=== PATIENT | female | born 2000 | race Caucasian/White ===

== ENCOUNTER 2021-10-23 14:40 | Emergency (ER) | payer MEDICAID, OTHER ==
[~2021-10-23] VITALS: Ht 157.4 cm; Wt 61.2 kg
[2021-10-23 14:57] LABS: BILIRUBIN,URINE NEGATIVE (NEGATIVE); COLOR,URINE YELLOW; GLUCOSE, URINE (UA) TRACE (NEGATIVE); KETONES,URINE NEGATIVE (NEGATIVE); LEUKOCYTE ESTERASE ,URINE 1+ (NEGATIVE); NITRITE,URINE NEGATIVE (NEGATIVE); PROTEIN,URINE NEGATIVE (NEGATIVE)
[2021-10-23 14:58] LABS: CLARITY,URINE SLIGHTLY CLOUDY
[2021-10-23 15:01] LABS: BACTERIA,URINE MODERATE /HPF; WBC,URINE >100 /HPF
--- NOTE | 2021-10-23 15:06 | ED GU-Female ---
General Chief Complaint: - Reproductive Stated Complaint: HEMATURIA Nursing Triage Note: Patient presents to the ED at 14 weeks gestation with c/o hematuria. Reports started having abdominal cramping yesterday and noted blood in her urine. Source: patient Exam Limitations: no limitations History of Present Illness Date Seen by Provider: Oct 23, 2021 Time Seen by Provider: 14:43 Initial Comments 21yoF that is roughly 14 WGA that is following with Dr. Jimenez coming in due to hematuria. Started this morning with associated dysuria and bilateral flank pain.Has a history of kidney stones years ago seen on ultrasound. Allergies and Home Medications Allergies Coded Allergies: No Known Drug Allergies (Unverified , 10/23/21) Patient Home Medication List Home Medication List Reviewed: Yes Cefdinir (Cefdinir) 300 Mg Capsule, 300 MG PO BID Prescribed by: DEMETRI COOPER on 10/23/21 0558 Review of Systems Review of Systems Constitutional: No fever EENTM: No blurred vision Respiratory: No cough Cardiovascular: No chest pain Gastrointestinal: No abdominal pain Genitourinary: burning Musculoskeletal: no symptoms reported Skin: no symptoms reported Psychiatric/Neurological: No Symptoms Reported Endocrine: No Symptoms Reported Hematologic/Lymphatic: No Symptoms Reported All Other Systemes Reviewed Negative Unless Noted: Yes Past Htcyaag-Vuzrtt-Hhszuf Hx Patient Social History Tobacco Use?: No Substance use?: No Alcohol Use?: No Immunizations Up To Date First/Initial COVID19 Vaccinat: No Past Medical History Surgery/Hospitalization HX: Kidney Stone Surgeries: No Physical Exam Vital Signs Vital Signs - First Documented 10/23/21 14:52 Temp 35.9 Pulse 91 Resp 14 B/P (MAP) 118/68 (85) Pulse Ox 99 O2 Delivery Room Air Capillary Refill : Less Than 3 Seconds Height, Weight, BMI Height: '" Weight: lbs. oz. kg; 24.00 BMI Method: General Appearance: WD/WN, no apparent distress HEENT: PERRL/EOMI, normal ENT inspection, pharynx normal Neck: non-tender, full range of motion, supple, normal inspection Cardiovascular: regular rate, rhythm, no edema, no murmur Respiratory: chest non-tender, lungs clear, normal breath sounds, no respiratory distress, no accessory muscle use Gastrointestinal: normal bowel sounds, non tender, soft; No distended, No guarding, No rebound Back: normal inspection, no CVA tenderness Extremities: normal range of motion, non-tender, normal inspection, no pedal edema, no calf tenderness, normal capillary refill Neurologic/Psychiatric: no motor/sensory deficits, alert, normal mood/affect Skin: normal color, warm/dry Lymphatic: no adenopathy Progress/Results/Core Measures Suspected Sepsis SIRS Temperature: Pulse: 91 Respiratory Rate: 14 Laboratory Tests 10/23/21 15:27: White Blood Count 9.7 Blood Pressure 118 /68 Mean: 85 Laboratory Tests 10/23/21 15:27: Creatinine 0.56L, Platelet Count 199, Total Bilirubin < 0.2 Results/Orders Lab Results Laboratory Tests Test 10/23/21 14:45 10/23/21 15:27 Range/Units Urine Color YELLOW Urine Clarity SLIGHTLY CLOUDY Urine pH 6.0 5-9 Urine Specific [place] <=1.005 1.016-1.022 Urine Protein NEGATIVE NEGATIVE Urine Glucose (UA) TRACE H NEGATIVE Urine Ketones NEGATIVE NEGATIVE Urine Nitrite NEGATIVE NEGATIVE Urine Bilirubin NEGATIVE NEGATIVE Urine Urobilinogen 0.2 < = 1.0 MG/DL Urine Leukocyte Esterase 1+ H NEGATIVE Urine RBC (Auto) 2+ H NEGATIVE Urine RBC 5-10 H /HPF Urine WBC >100 H /HPF Urine Squamous Epithelial Cells 2-5 /HPF Urine Crystals NONE /LPF Urine Bacteria MODERATE H /HPF Urine Casts NONE /LPF Urine Mucus NEGATIVE /LPF Urine Culture Indicated YES White Blood Count 9.7 4.3-11.0 10^3/uL Red Blood Count 4.21 3.80-5.11 10^6/uL Hemoglobin 13.0 11.5-16.0 g/dL Hematocrit 36 35-52 % Mean Corpuscular Volume 86 80-99 fL Mean Corpuscular Hemoglobin 31 25-34 pg Mean Corpuscular Hemoglobin Concent 36 32-36 g/dL Red Cell Distribution Width 13.8 10.0-14.5 % Platelet Count 199 130-400 10^3/uL Mean Platelet Volume 10.4 9.0-12.2 fL Immature Granulocyte % (Auto) 0 % Neutrophils (%) (Auto) 73 42-75 % Lymphocytes (%) (Auto) 20 12-44 % Monocytes (%) (Auto) 6 0-12 % Eosinophils (%) (Auto) 0 0-10 % Basophils (%) (Auto) 0 0-10 % Neutrophils # (Auto) 7.0 1.8-7.8 10^3/uL Lymphocytes # (Auto) 2.0 1.0-4.0 10^3/uL Monocytes # (Auto) 0.6 0.0-1.0 10^3/uL Eosinophils # (Auto) 0.0 0.0-0.3 10^3/uL Basophils # (Auto) 0.0 0.0-0.1 10^3/uL Immature Granulocyte # (Auto) 0.0 0.0-0.1 10^3/uL Sodium Level 135 135-145 MMOL/L Potassium Level 3.7 3.6-5.0 MMOL/L Chloride Level 103 98-107 MMOL/L Carbon Dioxide Level 21 21-32 MMOL/L Anion Gap 11 5-14 MMOL/L Blood Urea Nitrogen 7 7-18 MG/DL Creatinine 0.56 L 0.60-1.30 MG/DL Estimat Glomerular Filtration Rate 134 BUN/Creatinine Ratio 13 Glucose Level 88 70-105 MG/DL Calcium Level 8.9 8.5-10.1 MG/DL Corrected Calcium 8.7 8.5-10.1 MG/DL Total Bilirubin < 0.2 0.1-1.0 MG/DL Aspartate Amino Transf (AST/SGOT) 11 5-34 U/L Alanine Aminotransferase (ALT/SGPT) < 5 0-55 U/L Alkaline Phosphatase 53 40-136 U/L Total Protein 6.9 6.4-8.2 GM/DL Albumin 4.2 3.2-4.5 GM/DL My Orders Orders - DEMETRI COOPER MD Urine Bedside (10/23/21 14:44) Ua Culture If Indicated (10/23/21 14:44) Urine Culture (10/23/21 14:45) Cbc With Automated Diff (10/23/21 15:16) Comprehensive Metabolic Panel (10/23/21 15:16) Ceftriaxone 1 Gm Pre-Mix (Rocephin 1 Gm (10/23/21 15:30) Acetaminophen Tablet (Tylenol Tablet) (10/23/21 15:30) Medications Given in ED Current Medications Medications Dose Ordered Sig/Jose Route Start Time Stop Time Status Last Admin Dose Admin Acetaminophen 1,000 mg ONCE ONCE PO 10/23/21 15:30 10/23/21 15:31 DC 10/23/21 15:31 1,000 MG Ceftriaxone Sodium/Dextrose 50 ml @ 100 mls/hr ONCE ONCE IV 10/23/21 15:30 10/23/21 15:59 10/23/21 15:31 100 MLS/HR Vital Signs/I&O 10/23/21 14:52 Temp 35.9 Pulse 91 Resp 14 B/P (MAP) 118/68 (85) Pulse Ox 99 O2 Delivery Room Air Capillary Refill : Less Than 3 Seconds Blood Pressure Mean: 85 Progress Note : Progress Note Well-appearing 21-year-old female with above history coming in due to dysuria and hematuria. ABCs were intact and vitals were stable on presentation. Specifically she is afebrile and not tachycardic. Urinalysis with many white cells and moderate bacteria. Given the dysuria this is likely cystitis. She has no systemic symptoms such as fever, chills, body aches, nausea, vomiting that would be concerning for pyelonephritis. We gave her a dose of ceftriaxone in the emergency department. I contacted the OB on-call, Dr. Faustin, and discussed the case with her. She is okay with the patient going home as long as she comes back for any worsening of symptoms. She also wants the patient to follow-up with Dr. Jimenez early next week. I discussed all this with the patient. Given she is well-appearing I believe she is stable for discharge with outpatient follow-up. She was sent home with strict return precautions Of note, I personally did a ultrasound showing normal movements and heart rate. Departure Impression Primary Impression: Cystitis Additional Impression: Qualified Codes: Z3A.14 - 14 weeks gestation of Disposition: 01 HOME, SELF-CARE Condition: Stable Departure-Patient Inst. Decision time for Depature: 15:48 Referrals: NO,LOCAL PHYSICIAN (PCP/Family) Primary Care Physician Patient Instructions: Urinary Tract Infection, Adult (DC) Add. Discharge Instructions: I want you to take your temperature 2 times a day or anytime you are feeling like you potentially have a fever. If your temperature is 100.4 I want you to come back to the ER to be admitted to the hospital. If you develop any body aches, chills, or any other concerns then I also want you to present to the ER. It is very important that you take your antibiotics and you finish the entire course over the next 2 weeks since if this infection goes back to your kidneys you can get very sick and that is a risk for labor. If things go well, call Dr. Jimenez's office on Monday and try to get an appointment scheduled sooner. Scripts Cefdinir (Cefdinir) 300 Mg Capsule 300 MG PO BID for 14 Days, #28 CAP Prov: DEMETRI COOPER MD 10/23/21 Work/School Note: Work Release Form Date Seen in the Emergency Department: Oct 23, 2021 Return to Work: Oct 25, 2021 Restrictions: Return-No Fever (24hrs) DEMETRI COOPER MD Oct 23, 2021 15:05
[2021-10-23 15:30] LABS: BASOPHILS % (AUTO) 0 % (0-10); EOSINOPHILS % (AUTO) 0 % (0-10); HEMATOCRIT 36 % (35-52); LYMPHOCYTES % (AUTO) 20 % (12-44); MEAN CORPUSCULAR HEMOGLOBIN 31 pg (25-34); MEAN CORPUSCULAR HGB CONC 36 g/dL (32-36); MEAN CORPUSCULAR VOLUME 86 fL (80-99); MEAN PLATELET VOLUME 10.4 fL (9.0-12.2); MONOCYTES # (AUTO) 0.6 10^3/uL (0.0-1.0); MONOCYTES % (AUTO) 6 % (0-12); NEUTROPHILS % (AUTO) 73 % (42-75); PLATELET COUNT 199 10^3/uL (130-400); WHITE BLOOD COUNT 9.7 10^3/uL (4.3-11.0)
[2021-10-23] MEDS ORDERED: cefTRIAXone 1 GM PRE-MIX 50 ML IV ONE (15:30)
[2021-10-23] MEDS ORDERED: ACETAMINOPHEN 500 MG TAB (TYLENOL) PO ONE (15:30)
[2021-10-23 15:49] LABS: CARBON DIOXIDE 21 MMOL/L (21-32); CHLORIDE 103 MMOL/L (98-107); POTASSIUM 3.7 MMOL/L (3.6-5.0); SODIUM 135 MMOL/L (135-145)
[2021-10-23 15:50] LABS: ALANINE AMINOTRANSFERASE < 5 U/L (0-55); ALBUMIN 4.2 GM/DL (3.2-4.5); ALKALINE PHOSPHATASE 53 U/L (40-136); BILIRUBIN,TOTAL < 0.2 MG/DL (0.1-1.0); BUN/CREATININE RATIO 13; CALCIUM 8.9 MG/DL (8.5-10.1); CREATININE SERUM 0.56 MG/DL (0.60-1.30); GFR ESTIMATED 134; GLUCOSE 88 MG/DL (70-105); TOTAL PROTEIN 6.9 GM/DL (6.4-8.2)
[2021-10-23] MEDS ORDERED: CEFD300C3 PO (15:53)
[2021-10-23 15:56] VITALS: BP 118/68
== END 2021-10-23 15:58 | disposition home or self-care (01) ==
LOC: ER FS 14:42
DX: O23.12 Infections of bladder in pregnancy, second trimester (principal); Z3A.14 14 weeks gestation of pregnancy; Z28.310 Unvaccinated for COVID-19
CPT/HCPCS: 36415; 80053; 81000; 85025; 87088; 99283

== ENCOUNTER 2021-10-24 17:14 | Emergency (ER) | payer MEDICAID ==
[~2021-10-24] VITALS: Ht 157.4 cm; Wt 61.2 kg
[~2021-10-24 17:14] MED LIST: CEFD300C3 PO
[2021-10-24] MEDS ORDERED: NS IV 1000 ML 1,000 ML IV STA (17:58)
--- NOTE | 2021-10-24 18:02 | ED Abdominal Pain ---
General Stated Complaint: 14 WKS PREG,DX UTI,BODY ACHES,CHILLS Source of Information: Patient Exam Limitations: No Limitations History of Present Illness Date Seen by Provider: Oct 24, 2021 Time Seen by Provider: 18:00 Initial Comments Patient is a 21-year-old female who presents ED with urinary symptoms, lower pelvic discomfort with body aches fatigue and weakness. Patient states symptoms started 2 days ago with hematuria and urinary symptoms with discomfort. Patient Was seen at [facility] yesterday and was diagnosed with UTI. Was given dose of Rocephin discharged with cefdinir. She has taken 2 doses of her cefdinir. Woke up this morning with body aches chills and weakness. Started developing lower abdominal cramping without any vaginal bleeding, vaginal discharge. Urinary symptoms appear to be improving. Denies of any known fever. She is not up-to-date on her COVID or influenza vaccine. She is G1, P0. Patient is 14 weeks . 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 Patient denies nausea, vomiting, diarrhea,, cough, shortness of breath, sore throat, ear pain Allergies and Home Medications Allergies Coded Allergies: No Known Drug Allergies (Unverified , 10/23/21) Patient Home Medication List Home Medication List Reviewed: Yes Cefdinir (Cefdinir) 300 Mg Capsule, 300 MG PO BID Prescribed by: DEMETRI COOPER on 10/23/21 6344 Review of Systems Review of Systems Constitutional: chills, malaise EENTM: No Double Vision, No Eye Pain, No Mouth Pain, No Mouth Swelling Respiratory: Denies Cough, Denies Orthopnea, Denies Shortness of Air, Denies SOA at Rest Gastrointestinal: Abdominal Pain; Denies Diarrhea, Denies Nausea, Denies V omiting Genitourinary: Burning; Denies Discharge, Denies Flank Pain; Hematuria Musculoskeletal: No back pain, No joint pain Skin: No change in color, No change in hair/nails All Other Systems Reviewed Negative Unless Noted: Yes Past Gecghzb-Bwqsjj-Wchotw Hx Immunizations Up To Date First/Initial COVID19 Vaccinat: No Past Medical History Surgery/Hospitalization HX: Kidney Stone Surgeries: No Physical Exam Vital Signs Vital Signs - First Documented 10/24/21 17:54 Temp 35.6 Pulse 93 Resp 18 B/P (MAP) 129/76 (93) Pulse Ox 100 Capillary Refill : Height/Weight/BMI Height: '" Weight: lbs. oz. kg; 24.00 BMI Method: General Appearance: WD/WN, no apparent distress HEENT: PERRL/EOMI, normal ENT inspection, TMs normal, pharynx normal Neck: non-tender, full range of motion, supple Respiratory: chest non-tender, lungs clear, normal breath sounds, no respiratory distress, no accessory muscle use Cardiovascular: regular rate, rhythm, no edema, no gallop, no JVD Gastrointestinal: normal bowel sounds, soft, no organomegaly, tenderness (Bilateral lower abdominal discomfort and tenderness. 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, no motor/sensory deficits, alert, normal mood/affect, oriented x 3 Skin: normal color Focused Exam Lactate Level 10/24/21 18:20: Lactic Acid Level 0.75 Lactic Acid Level Laboratory Tests Test 10/24/21 18:20 Lactic Acid Level 0.75 MMOL/L (0.50-2.00) Progress/Results/Core Measures Results/Orders Lab Results Laboratory Tests Test 10/24/21 18:00 10/24/21 18:10 10/24/21 18:20 Range/Units White Blood Count 7.6 4.3-11.0 10^3/uL Red Blood Count 4.24 3.80-5.11 10^6/uL Hemoglobin 12.9 11.5-16.0 g/dL Hematocrit 37 35-52 % Mean Corpuscular Volume 88 80-99 fL Mean Corpuscular Hemoglobin 30 25-34 pg Mean Corpuscular Hemoglobin Concent 35 32-36 g/dL Red Cell Distribution Width 13.6 10.0-14.5 % Platelet Count 203 130-400 10^3/uL Mean Platelet Volume 10.4 9.0-12.2 fL Immature Granulocyte % (Auto) 0 % Neutrophils (%) (Auto) 69 42-75 % Lymphocytes (%) (Auto) 23 12-44 % Monocytes (%) (Auto) 6 0-12 % Eosinophils (%) (Auto) 1 0-10 % Basophils (%) (Auto) 0 0-10 % Neutrophils # (Auto) 5.3 1.8-7.8 10^3/uL Lymphocytes # (Auto) 1.8 1.0-4.0 10^3/uL Monocytes # (Auto) 0.5 0.0-1.0 10^3/uL Eosinophils # (Auto) 0.1 0.0-0.3 10^3/uL Basophils # (Auto) 0.0 0.0-0.1 10^3/uL Immature Granulocyte # (Auto) 0.0 0.0-0.1 10^3/uL Sodium Level 137 135-145 MMOL/L Potassium Level 3.6 3.6-5.0 MMOL/L Chloride Level 105 98-107 MMOL/L Carbon Dioxide Level 21 21-32 MMOL/L Anion Gap 11 5-14 MMOL/L Blood Urea Nitrogen 5 L 7-18 MG/DL Creatinine 0.65 0.60-1.30 MG/DL Estimat Glomerular Filtration Rate 129 BUN/Creatinine Ratio 8 Glucose Level 97 70-105 MG/DL Calcium Level 9.2 8.5-10.1 MG/DL Corrected Calcium 9.2 8.5-10.1 MG/DL Total Bilirubin 0.3 0.1-1.0 MG/DL Aspartate Amino Transf (AST/SGOT) 14 5-34 U/L Alanine Aminotransferase (ALT/SGPT) < 6 0-55 U/L Alkaline Phosphatase 45 40-136 U/L Total Protein 6.9 6.4-8.2 GM/DL Albumin 4.0 3.2-4.5 GM/DL Human Chorionic Gonadotropin, Quant 15987 H <5 MIU/ML Urine Color YELLOW Urine Clarity CLEAR Urine pH 8.0 5-9 Urine Specific [place] 1.015 L 1.016-1.022 Urine Protein NEGATIVE NEGATIVE Urine Glucose (UA) NEGATIVE NEGATIVE Urine Ketones NEGATIVE NEGATIVE Urine Nitrite NEGATIVE NEGATIVE Urine Bilirubin NEGATIVE NEGATIVE Urine Urobilinogen 0.2 < = 1.0 MG/DL Urine Leukocyte Esterase 1+ H NEGATIVE Urine RBC (Auto) NEGATIVE NEGATIVE Urine RBC NONE /HPF Urine WBC 2-5 /HPF Urine Squamous Epithelial Cells 2-5 /HPF Urine Renal Epithelial Cells 2-5 /HPF Urine Crystals NONE /LPF Urine Bacteria NEGATIVE /HPF Urine Casts NONE /LPF Urine Mucus NEGATIVE /LPF Urine Culture Indicated NO Influenza Type A (RT-PCR) Not Detected Not Detecte Influenza Type B (RT-PCR) Not Detected Not Detecte SARS-CoV-2 RNA (RT-PCR) Not Detected Not Detecte Lactic Acid Level 0.75 0.50-2.00 MMOL/L My Orders Orders - DEMETRI TOURE Cbc With Automated Diff (10/24/21 17:58) Comprehensive Metabolic Panel (10/24/21 17:58) Lactic Acid Analyzer (10/24/21 17:58) Blood Culture (10/24/21 17:58) Covid 19 Inhouse Test (10/24/21 17:58) Influenza A And B By Pcr (10/24/21 17:58) Ns Iv 1000 Ml (Sodium Chloride 0.9%) (10/24/21 17:58) Hcg,Quantitative (10/24/21 17:59) Vital Signs/I&O 10/24/21 17:54 Temp 35.6 Pulse 93 Resp 18 B/P (MAP) 129/76 (93) Pulse Ox 100 Departure Communication (PCP) Patient was diagnosed with UTI yesterday. Patient Was given dose of Rocephin and discharged with cefdinir. She was slightly tachycardic so blood cultures were ordered secondary to concern for failed outpatient therapy. She reports fatigue and weakness today with some mild lower pelvic discomfort. She is G1, P0. 14 weeks . No vaginal bleeding. She is not concern for sexual transmitted infection. No surgical abdomen. Patient was given a liter of fluid. Lab work was otherwise unremarkable. Normal lactic acid. COVID influenza negative. Provement of her urinalysis. Patient was discussed with Dr. Goldberg who was contacted regarding patient yesterday. Due to improvement of lab work she felt comfortable for patient to be discharged home which I do agree. She does not appear toxic. She does not appear in acute distress.. Continue with cefdinir. Recommend staying hydrated. Tylenol at home for pain and discomfort. She has no right lower quadrant or right upper quadrant tenderness. If any worsening symptoms return back to ED for further evaluation. No vaginal bleeding concerning for threatened miscarriage. cardiac activity 145 Impression Primary Impression: UTI (urinary tract infection) Disposition: 01 HOME, SELF-CARE Condition: Stable Departure-Patient Inst. Decision time for Depature: 19:14 Referrals: NO,LOCAL PHYSICIAN (PCP/Family) Primary Care Physician Patient Instructions: Urinary Tract Infection, Adult (DC) Add. Discharge Instructions: Follow-up with Dr. Jimenez. Recommend drinking plenty fluids. Recommend healthy diet. If any worsening symptoms return back to ED. DEMETRI TOURE Oct 24, 2021 18:02
[2021-10-24 18:14] LABS: BASOPHILS % (AUTO) 0 % (0-10); EOSINOPHILS # (AUTO) 0.1 10^3/uL (0.0-0.3); EOSINOPHILS % (AUTO) 1 % (0-10); HEMATOCRIT 37 % (35-52); HEMOGLOBIN 12.9 g/dL (11.5-16.0); LYMPHOCYTES # (AUTO) 1.8 10^3/uL (1.0-4.0); LYMPHOCYTES % (AUTO) 23 % (12-44); MEAN CORPUSCULAR HEMOGLOBIN 30 pg (25-34); MEAN CORPUSCULAR HGB CONC 35 g/dL (32-36); MEAN CORPUSCULAR VOLUME 88 fL (80-99); MEAN PLATELET VOLUME 10.4 fL (9.0-12.2); MONOCYTES # (AUTO) 0.5 10^3/uL (0.0-1.0); MONOCYTES % (AUTO) 6 % (0-12); NEUTROPHILS # (AUTO) 5.3 10^3/uL (1.8-7.8); NEUTROPHILS % (AUTO) 69 % (42-75); PLATELET COUNT 203 10^3/uL (130-400); WHITE BLOOD COUNT 7.6 10^3/uL (4.3-11.0)
[2021-10-24 18:22] LABS: CHLORIDE 105 MMOL/L (98-107); POTASSIUM 3.6 MMOL/L (3.6-5.0); SODIUM 137 MMOL/L (135-145)
[2021-10-24 18:23] LABS: CALCIUM 9.2 MG/DL (8.5-10.1)
[2021-10-24 18:24] LABS: GLUCOSE 97 MG/DL (70-105); TOTAL PROTEIN 6.9 GM/DL (6.4-8.2)
[2021-10-24 18:24] LABS: BILIRUBIN,URINE NEGATIVE (NEGATIVE); CLARITY,URINE CLEAR; COLOR,URINE YELLOW; GLUCOSE, URINE (UA) NEGATIVE (NEGATIVE); KETONES,URINE NEGATIVE (NEGATIVE); LEUKOCYTE ESTERASE ,URINE 1+ (NEGATIVE); NITRITE,URINE NEGATIVE (NEGATIVE); PROTEIN,URINE NEGATIVE (NEGATIVE)
[2021-10-24 18:25] LABS: CARBON DIOXIDE 21 MMOL/L (21-32)
[2021-10-24 18:26] LABS: BILIRUBIN,TOTAL 0.3 MG/DL (0.1-1.0)
[2021-10-24 18:28] LABS: ALKALINE PHOSPHATASE 45 U/L (40-136); CREATININE SERUM 0.65 MG/DL (0.60-1.30); GFR ESTIMATED 129
[2021-10-24 18:29] LABS: BUN/CREATININE RATIO 8
[2021-10-24 18:31] LABS: ALANINE AMINOTRANSFERASE < 6 U/L (0-55)
[2021-10-24 18:42] LABS: BACTERIA,URINE NEGATIVE /HPF
[2021-10-24 19:20] VITALS: BP 101/60
== END 2021-10-24 19:22 | disposition home or self-care (01) ==
LOC: EDUNIT# 17:14 → ER 17:18
DX: O23.42 Unspecified infection of urinary tract in pregnancy, second trimester (principal); Z20.822 Contact with and (suspected) exposure to COVID-19; Z28.310 Unvaccinated for COVID-19; Z3A.14 14 weeks gestation of pregnancy
CPT/HCPCS: 36415; 80053; 81000; 83605; 84702; 85025; 87040; 87636

== ENCOUNTER 2021-11-28 11:03 | Emergency (ER) | payer MEDICAID ==
[~2021-11-28] VITALS: Ht 157.5 cm; Wt 62.8 kg
--- NOTE | 2021-11-28 11:16 | ED GU-Female ---
General Chief Complaint: OB < 20 WEEKS Stated Complaint: LOWER RIGHT SIDE PAIN 19 WKS PREG History of Present Illness Date Seen by Provider: Nov 28, 2021 Time Seen by Provider: 11:11 Initial Comments 21-year-old female presents with lower right-sided abdominal pain. She reports that started 3 days ago and has gotten worse. Now goes into her right back. She has some nausea no vomiting some diarrhea. She does have a history of kidney stones. She has known intrauterine . No vaginal bleeding or discharge. She does report some mild dysuria Allergies and Home Medications Allergies Coded Allergies: No Known Drug Allergies (Unverified , 10/23/21) Patient Home Medication List Home Medication List Reviewed: Yes Cefdinir (Cefdinir) 300 Mg Capsule, 300 MG PO BID Prescribed by: DEMETRI COOPER on 10/23/21 6029 Review of Systems Review of Systems Constitutional: No chills, No fever Gastrointestinal: RLQ, abdominal pain, diarrhea, nausea Genitourinary: dysuria, flank pain : Yes Musculoskeletal: back pain Skin: no symptoms reported Psychiatric/Neurological: No Symptoms Reported Endocrine: No Symptoms Reported Hematologic/Lymphatic: No Symptoms Reported Past Ajrqjbb-Gkyztk-Npvuqg Hx Immunizations Up To Date First/Initial COVID19 Vaccinat: No Past Medical History Surgery/Hospitalization HX: Kidney Stone Surgeries: No Physical Exam Vital Signs Vital Signs - First Documented 11/28/21 11:16 Temp 35.7 Pulse 92 Resp 18 B/P (MAP) 113/79 (90) Pulse Ox 99 O2 Delivery Room Air Capillary Refill : Height, Weight, BMI Height: '" Weight: lbs. oz. kg; 24.00 BMI Method: General Appearance: WD/WN, no apparent distress Cardiovascular: normal peripheral pulses, regular rate, rhythm Respiratory: lungs clear, normal breath sounds Gastrointestinal: soft, tenderness (Her right lower quadrant) Back: CVA tenderness (R) Extremities: normal range of motion, non-tender, normal capillary refill Neurologic/Psychiatric: alert, normal mood/affect, oriented x 3 Progress/Results/Core Measures Suspected Sepsis SIRS Temperature: Pulse: Respiratory Rate: Laboratory Tests 11/28/21 11:27: White Blood Count 10.5 Blood Pressure / Mean: Laboratory Tests 11/28/21 11:27: Creatinine 0.56L, Platelet Count 188, Total Bilirubin 0.2 Results/Orders Lab Results Laboratory Tests Test 11/28/21 11:15 11/28/21 11:27 Range/Units Urine Color YELLOW Urine Clarity CLEAR Urine pH 6.0 5-9 Urine Specific [place] 1.025 H 1.016-1.022 Urine Protein NEGATIVE NEGATIVE Urine Glucose (UA) NEGATIVE NEGATIVE Urine Ketones NEGATIVE NEGATIVE Urine Nitrite NEGATIVE NEGATIVE Urine Bilirubin NEGATIVE NEGATIVE Urine Urobilinogen 0.2 < = 1.0 MG/DL Urine Leukocyte Esterase NEGATIVE NEGATIVE Urine RBC (Auto) NEGATIVE NEGATIVE Urine RBC 2-5 H /HPF Urine WBC 0-2 /HPF Urine Squamous Epithelial Cells 5-10 /HPF Urine Crystals NONE /LPF Urine Bacteria TRACE /HPF Urine Casts NONE /LPF Urine Mucus MODERATE H /LPF Urine Culture Indicated NO White Blood Count 10.5 4.3-11.0 10^3/uL Red Blood Count 4.08 3.80-5.11 10^6/uL Hemoglobin 12.5 11.5-16.0 g/dL Hematocrit 35 35-52 % Mean Corpuscular Volume 87 80-99 fL Mean Corpuscular Hemoglobin 31 25-34 pg Mean Corpuscular Hemoglobin Concent 35 32-36 g/dL Red Cell Distribution Width 13.2 10.0-14.5 % Platelet Count 188 130-400 10^3/uL Mean Platelet Volume 10.5 9.0-12.2 fL Immature Granulocyte % (Auto) 1 % Neutrophils (%) (Auto) 70 42-75 % Lymphocytes (%) (Auto) 21 12-44 % Monocytes (%) (Auto) 7 0-12 % Eosinophils (%) (Auto) 1 0-10 % Basophils (%) (Auto) 0 0-10 % Neutrophils # (Auto) 7.4 1.8-7.8 10^3/uL Lymphocytes # (Auto) 2.3 1.0-4.0 10^3/uL Monocytes # (Auto) 0.7 0.0-1.0 10^3/uL Eosinophils # (Auto) 0.1 0.0-0.3 10^3/uL Basophils # (Auto) 0.0 0.0-0.1 10^3/uL Immature Granulocyte # (Auto) 0.1 0.0-0.1 10^3/uL Sodium Level 139 135-145 MMOL/L Potassium Level 3.8 3.6-5.0 MMOL/L Chloride Level 106 98-107 MMOL/L Carbon Dioxide Level 20 L 21-32 MMOL/L Anion Gap 13 5-14 MMOL/L Blood Urea Nitrogen 10 7-18 MG/DL Creatinine 0.56 L 0.60-1.30 MG/DL Estimat Glomerular Filtration Rate 134 BUN/Creatinine Ratio 18 Glucose Level 78 70-105 MG/DL Calcium Level 9.0 8.5-10.1 MG/DL Corrected Calcium 9.0 8.5-10.1 MG/DL Magnesium Level 1.8 1.6-2.4 MG/DL Total Bilirubin 0.2 0.1-1.0 MG/DL Aspartate Amino Transf (AST/SGOT) 12 5-34 U/L Alanine Aminotransferase (ALT/SGPT) < 5 0-55 U/L Alkaline Phosphatase 55 40-136 U/L C-Reactive Protein < 0.30 <0.50 MG/DL Total Protein 6.7 6.4-8.2 GM/DL Albumin 4.0 3.2-4.5 GM/DL My Orders Orders - ABERNATHYHERNAN L DO Cbc With Automated Diff (11/28/21 11:19) Comprehensive Metabolic Panel (11/28/21 11:19) Magnesium (11/28/21 11:19) Ua Culture If Indicated (11/28/21 11:19) Crp Fs (11/28/21 11:19) Vital Signs/I&O 11/28/21 11:16 Temp 35.7 Pulse 92 Resp 18 B/P (MAP) 113/79 (90) Pulse Ox 99 O2 Delivery Room Air Capillary Refill : Progress Note : Progress Note Patient has good movement and good heart tones in the 150s. She does not have any vaginal bleeding or pain. Patient with a negative white count and negative CRP after 3 days makes appendicitis very unlikely. Patient with no acute urinary tract infection. She has minimal amount of RBCs in her blood so she does have potential for a possible small kidney stone. She also has some diarrhea and nausea so she may have enteritis. I will give her some Reglan which will help with the nausea and stomach discomfort. She can use Tylenol. She has an ultrasound scheduled 2 days from now. Recommend if symptoms worsen she follow-up with her primary care provider or return to the ER. She is stable discharged home Departure Impression Primary Impression: Right lower quadrant abdominal pain affecting Disposition: HOME, SELF-CARE Condition: Stable Departure-Patient Inst. Referrals: NO,LOCAL PHYSICIAN (PCP/Family) Primary Care Physician Patient Instructions: Abdominal Pain, Adult ED Add. Discharge Instructions: Follow-up with your gymnastic coach or [employer] in the next 1 to 2 days for recheck of your symptoms, return to the ER if symptoms worsen Drink plenty of fluids, Tylenol as needed for pain but please limit amount All discharge instructions reviewed with patient and/or family. Voiced understanding. Scripts Metoclopramide HCl (Reglan) 5 Mg Tablet 5 MG PO TID PRN for NAUSEA/VOMITING, #14 TAB Prov: HERNAN ABERNATHY DO 11/28/21 HERNAN ABERNATHY DO Nov 28, 2021 11:16
[2021-11-28 11:30] LABS: BASOPHILS % (AUTO) 0 % (0-10); EOSINOPHILS # (AUTO) 0.1 10^3/uL (0.0-0.3); EOSINOPHILS % (AUTO) 1 % (0-10); HEMATOCRIT 35 % (35-52); HEMOGLOBIN 12.5 g/dL (11.5-16.0); LYMPHOCYTES # (AUTO) 2.3 10^3/uL (1.0-4.0); LYMPHOCYTES % (AUTO) 21 % (12-44); MEAN CORPUSCULAR HEMOGLOBIN 31 pg (25-34); MEAN CORPUSCULAR HGB CONC 35 g/dL (32-36); MEAN CORPUSCULAR VOLUME 87 fL (80-99); MEAN PLATELET VOLUME 10.5 fL (9.0-12.2); MONOCYTES # (AUTO) 0.7 10^3/uL (0.0-1.0); MONOCYTES % (AUTO) 7 % (0-12); NEUTROPHILS # (AUTO) 7.4 10^3/uL (1.8-7.8); NEUTROPHILS % (AUTO) 70 % (42-75); PLATELET COUNT 188 10^3/uL (130-400); WHITE BLOOD COUNT 10.5 10^3/uL (4.3-11.0)
[2021-11-28 11:32] LABS: BILIRUBIN,URINE NEGATIVE (NEGATIVE); CLARITY,URINE CLEAR; COLOR,URINE YELLOW; GLUCOSE, URINE (UA) NEGATIVE (NEGATIVE); KETONES,URINE NEGATIVE (NEGATIVE); LEUKOCYTE ESTERASE ,URINE NEGATIVE (NEGATIVE); NITRITE,URINE NEGATIVE (NEGATIVE); PROTEIN,URINE NEGATIVE (NEGATIVE)
[2021-11-28 11:35] LABS: BACTERIA,URINE TRACE /HPF; WBC,URINE 0-2 /HPF
[2021-11-28 11:51] LABS: BUN/CREATININE RATIO 18; CARBON DIOXIDE 20 MMOL/L (21-32); CHLORIDE 106 MMOL/L (98-107); CREATININE SERUM 0.56 MG/DL (0.60-1.30); GFR ESTIMATED 134; POTASSIUM 3.8 MMOL/L (3.6-5.0); SODIUM 139 MMOL/L (135-145)
[2021-11-28 11:52] LABS: ALANINE AMINOTRANSFERASE < 5 U/L (0-55); ALKALINE PHOSPHATASE 55 U/L (40-136); BILIRUBIN,TOTAL 0.2 MG/DL (0.1-1.0); GLUCOSE 78 MG/DL (70-105); MAGNESIUM 1.8 MG/DL (1.6-2.4); TOTAL PROTEIN 6.7 GM/DL (6.4-8.2)
[2021-11-28] MEDS ORDERED: METO5TAB75 PO (12:13)
[2021-11-28 12:17] VITALS: BP 118/71
== END 2021-11-28 12:19 | disposition home or self-care (01) ==
LOC: EDUNIT# 11:03 → ER FS 11:06
DX: O26.892 Other specified pregnancy related conditions, second trimester (principal); R10.32 Left lower quadrant pain; Z28.310 Unvaccinated for COVID-19
CPT/HCPCS: 36415; 80053; 81000; 83735; 85025; 86141

== ENCOUNTER → 2021-11-30 | Outpatient (CLI) | payer MEDICAID ==
[~2021-11-30] MED LIST changes: +METO5TAB75 PO
--- NOTE | 2021-11-30 10:54 | Diagnostic Imaging Report ---
OBSTETRICAL ULTRASOUND TECHNIQUE: Multiple real-time grayscale images were obtained over the gravid uterus. FINDINGS: INDICATION: Supervision during normal . CORRELATION: None FINDINGS: Single viable intrauterine currently in a cephalic presentation. Amount of amniotic fluid is normal. Placenta posterior and without evidence for previa. Visualized anatomical structures including the kidneys, bladder, stomach, intracranial structures, four-chamber heart, three-vessel cord and insertion site, spine and extremities appearing unremarkable. Maternal adnexa with nonvisualization of either ovary. Cervical length at 3.5 cm. Biometrical measurements are as follows: Biparietal 5 cm, age 21 weeks 1 days. Head circumference 18.16 cm, age 20 weeks 4 days. Abdominal circumference 14.94 cm, age 20 weeks 2 days. Femur length 3.13 cm, age 19 weeks 6 days. Sonographic estimate age: 20 weeks 4 days. Sonographic estimated date of delivery: 04/15/2022. Estimated Weight: 330 gm (+/- 49 gm). LMP percentile: 41%. heart rate: 146 beats per minute. number: 1 of 1. IMPRESSION: 1. Single viable intrauterine , currently in a cephalic presentation. 2. Sonographic estimated age 20 weeks 4 days, with an estimated date of delivery 04/15/2022. 3. No sonographic abnormalities demonstrated at this time. Dictated by: Dictated on workstation # [id number]
== END ==
LOC: RAD FS 08:53
PROVIDERS: ATTEND Obstetrics & Gynecology
DX: Z34.82 Encounter for supervision of other normal pregnancy, second trimester (principal); Z3A.20 20 weeks gestation of pregnancy
CPT/HCPCS: 76805

== ENCOUNTER 2022-02-28 18:44 | Emergency (ER) | payer MEDICAID ==
--- NOTE | 2022-02-28 19:05 | ED GU-Female ---
General Chief Complaint: OB > 20 WEEKS Stated Complaint: OB,PASSING OUT,DIZZINESS,NAUSEA Nursing Triage Note: Pt brought in by ems with complaints of lower abd pain. Pt is 32 weeks Source: patient Exam Limitations: clinical condition History of Present Illness Date Seen by Provider: Feb 28, 2022 Time Seen by Provider: 18:30 Initial Comments Patient is a 21-year-old G1 , P0 32-week gestation female presents with intermittent pelvic pain for the past several hours. Pain is cramping and radiates to the back and occurs every 20 minutes. Patient denies vaginal bleeding or fluid leak. Reports movement arrives by EMS. [facility] [place]. Timing/Duration: this morning Severity/Quality: moderate Location: suprapubic Radiation: other Activities at Onset: other Associated Symptoms: other Allergies and Home Medications Allergies Coded Allergies: No Known Drug Allergies (Unverified , 10/23/21) Patient Home Medication List Home Medication List Reviewed: Yes Cefdinir (Cefdinir) 300 Mg Capsule, 300 MG PO BID Prescribed by: DEMETRI COOPER on 10/23/21 1553 Metoclopramide HCl (Reglan) 5 Mg Tablet, 5 MG PO TID PRN for NAUSEA/VOMITING Prescribed by: HERNAN ABERNATHY on 11/28/21 1213 Review of Systems Review of Systems Constitutional: see HPI Genitourinary: see HPI : Yes Expected Date of Delivery: Feb 28, 2022 Musculoskeletal: see HPI Past Xzogqxp-Inncgg-Xsrqbi Hx Patient Social History Tobacco Use?: No Use of E-Cig and/or Vaping dev: No Substance use?: No Pt feels they are or have been: No Immunizations Up To Date First/Initial COVID19 Vaccinat: No Past Medical History Surgery/Hospitalization HX: kidney stones Surgeries: No Physical Exam Vital Signs Vital Signs - First Documented 02/28/22 18:44 Temp 35.7 Pulse 84 Resp 18 B/P (MAP) 116/71 (86) Pulse Ox 100 O2 Delivery Room Air Capillary Refill : Less Than 3 Seconds Height, Weight, BMI Height: '" Weight: lbs. oz. kg; 25.00 BMI Method: General Appearance: no apparent distress Cardiovascular: regular rate, rhythm Respiratory: lungs clear Genital/Rectal: normal genital exam, normal vaginal exam, tenderness (Gravid abdomen, fundus below the diaphragm) Progress/Results/Core Measures Suspected Sepsis SIRS Temperature: Pulse: 84 Respiratory Rate: 18 Blood Pressure 116 /71 Mean: 86 Results/Orders Vital Signs/I&O 02/28/22 18:44 Temp 35.7 Pulse 84 Resp 18 B/P (MAP) 116/71 (86) Pulse Ox 100 O2 Delivery Room Air Capillary Refill : Less Than 3 Seconds Blood Pressure Mean: 86 Departure Communication (Admissions) Patient with pelvic cramping, heart tones. No vaginal fluid leak, bleeding. No . Dr. Jimenez accepted to L&D department at [facility] Impression Primary Impression: Pelvic pain during in third trimester, antepartum Disposition: 02 XFER SHT-TRM HOSP Condition: Stable Transfer Transfer Reason: Exceeds level of care Time Spoke to Accepting Phy: 19:06 Departure-Patient Inst. Decision time for Depature: 19:06 Referrals: MICHAEL JIMENEZ MD (PCP/Family) Primary Care Physician JARAD MON DO Feb 28, 2022 19:05
[2022-02-28 19:10] VITALS: BP 116/71
[2022-02-28] MEDS ORDERED: PREN-142 PO (21:48)
[2022-02-28] MEDS ORDERED: NF-METHYLP PO (21:51)
== END 2022-02-28 19:15 | disposition still patient (30) ==
LOC: EDUNIT# 18:44 → ER FS 18:46
DX: O26.893 Other specified pregnancy related conditions, third trimester (principal); R10.2 Pelvic and perineal pain; Z28.310 Unvaccinated for COVID-19; Z3A.32 32 weeks gestation of pregnancy

== ENCOUNTER 2022-02-28 19:58 | Outpatient (CLI) | payer MEDICAID ==
[~2022-02-28] VITALS: Ht 157.5 cm; Wt 75.5 kg
[2022-02-28 20:12] VITALS: BP 126/77
[2022-02-28 20:57] LABS: BILIRUBIN,URINE NEGATIVE (NEGATIVE); CLARITY,URINE CLEAR; COLOR,URINE YELLOW; GLUCOSE, URINE (UA) TRACE (NEGATIVE); KETONES,URINE NEGATIVE (NEGATIVE); LEUKOCYTE ESTERASE ,URINE NEGATIVE (NEGATIVE); NITRITE,URINE NEGATIVE (NEGATIVE); PROTEIN,URINE NEGATIVE (NEGATIVE)
[2022-02-28 20:59] LABS: BACTERIA,URINE NEGATIVE /HPF; WBC,URINE RARE /HPF
[2022-02-28 21:12] LABS: BASOPHILS # (AUTO) 0.1 10^3/uL (0.0-0.1); BASOPHILS % (AUTO) 0 % (0-10); EOSINOPHILS # (AUTO) 0.2 10^3/uL (0.0-0.3); EOSINOPHILS % (AUTO) 1 % (0-10); HEMATOCRIT 34 % (35-52); HEMOGLOBIN 11.6 g/dL (11.5-16.0); LYMPHOCYTES % (AUTO) 16 % (12-44); MEAN CORPUSCULAR HEMOGLOBIN 29 pg (25-34); MEAN CORPUSCULAR HGB CONC 34 g/dL (32-36); MEAN CORPUSCULAR VOLUME 86 fL (80-99); MEAN PLATELET VOLUME 10.8 fL (9.0-12.2); MONOCYTES # (AUTO) 0.8 10^3/uL (0.0-1.0); MONOCYTES % (AUTO) 7 % (0-12); NEUTROPHILS # (AUTO) 9.5 10^3/uL (1.8-7.8); NEUTROPHILS % (AUTO) 75 % (42-75); PLATELET COUNT 199 10^3/uL (130-400); WHITE BLOOD COUNT 12.8 10^3/uL (4.3-11.0)
[2022-02-28] MEDS ORDERED: predniSONE 20 MG TAB PO ONE (21:45)
[2022-02-28] MEDS ORDERED: PREN-142 PO (21:48)
[2022-02-28] MEDS ORDERED: NF-METHYLP PO (21:51)
[2022-02-28] MEDS ORDERED: predniSONE 20 MG TAB ONE (21:55)
[2022-02-28 22:08] VITALS: BP 126/77
--- NOTE | 2022-03-01 08:39 | Physician Query-Final Dx ---
DANIE,03/01/22 0839: Clinic Account Progress/Dx Physician Query: Please give diagnosis Please include # weeks gestation Date of Service Feb 28, 2022 at 19:58 MICHAEL DOMINGUEZ MD 03/02/22 0649: Clinic Account Progress/Dx DIAGNOSIS: Diagnosis 33 weeks gestation with PUPPP ,AprMar 01, 2022 08:39 MICHAEL DOMINGUEZ MD Mar 02, 2022 06:49
== END 2022-02-28 22:08 | disposition home or self-care (01) ==
LOC: LDRP 19:58 → WSo 19:58
PROVIDERS: ATTEND Obstetrics & Gynecology
DX: O99.891 Other specified diseases and conditions complicating pregnancy (principal); Z3A.33 33 weeks gestation of pregnancy
CPT/HCPCS: 36415; 81000; 85025; 99214

== ENCOUNTER 2022-04-01 17:39 | Outpatient (CLI) | payer MEDICAID ==
[~2022-04-01] VITALS: Ht 157.5 cm; Wt 79.3 kg
[~2022-04-01 17:39] MED LIST changes: +NF-METHYLP PO; +PREN-142 PO
[2022-04-01 18:14] LABS: BILIRUBIN,URINE NEGATIVE (NEGATIVE); CLARITY,URINE CLEAR; COLOR,URINE YELLOW; GLUCOSE, URINE (UA) TRACE (NEGATIVE); KETONES,URINE NEGATIVE (NEGATIVE); LEUKOCYTE ESTERASE ,URINE TRACE (NEGATIVE); NITRITE,URINE NEGATIVE (NEGATIVE); PROTEIN,URINE NEGATIVE (NEGATIVE)
[2022-04-01 18:20] VITALS: BP 114/63
[2022-04-01 18:22] LABS: BACTERIA,URINE FEW /HPF; SQUAMOUS EPITHELIAL CELL,UR 0-2 /HPF
[2022-04-01] MEDS ORDERED: NITROFURANTOIN 100 MG (MACROBID) CAPSULE PO SCH (19:00)
[2022-04-01] MEDS ORDERED: D5 LR IV SOLUTION 1,000 ML IV ONE (19:00)
--- NOTE | 2022-04-04 08:40 | Physician Query-Final Dx ---
04/04/22 0840: Clinic Account Progress/Dx Physician Query: Please give diagnosis Please include # weeks gestation Date of Service Apr 01, 2022 at 17:39 MICHAEL DOMINGUEZ MD 04/04/22 0848: Clinic Account Progress/Dx DIAGNOSIS: Diagnosis Urinary tract infection at 37 weeks gestation Apr 04, 2022 08:40 MICHAEL DOMINGUEZ MD Apr 04, 2022 08:48
== END 2022-04-01 21:20 | disposition home or self-care (01) ==
LOC: LDRP 17:39 → WSo 17:39
PROVIDERS: ATTEND Obstetrics & Gynecology
DX: O23.43 Unspecified infection of urinary tract in pregnancy, third trimester (principal); Z3A.37 37 weeks gestation of pregnancy
CPT/HCPCS: 81000; 87088

== ENCOUNTER 2022-04-08 14:36 | Inpatient (IN) | payer MEDICAID ==
[~2022-04-08] VITALS: Ht 157.5 cm; Wt 79.3 kg
[2022-04-08] VITALS (27 sets, daily range): BP systolic 93–134; BP diastolic 50–72
[2022-04-08] MEDS ORDERED: MINERAL OIL 30 ML UDC TOP PRN (15:15)
[2022-04-08 15:21] LABS: BILIRUBIN,URINE NEGATIVE (NEGATIVE); CLARITY,URINE CLEAR; COLOR,URINE YELLOW; GLUCOSE, URINE (UA) NEGATIVE (NEGATIVE); KETONES,URINE NEGATIVE (NEGATIVE); LEUKOCYTE ESTERASE ,URINE NEGATIVE (NEGATIVE); NITRITE,URINE NEGATIVE (NEGATIVE); PROTEIN,URINE NEGATIVE (NEGATIVE)
[2022-04-08 15:59] LABS: BACTERIA,URINE FEW /HPF; SQUAMOUS EPITHELIAL CELL,UR 0-2 /HPF; WBC,URINE 0-2 /HPF
[2022-04-08 16:04] LABS: BASOPHILS % (AUTO) 0 % (0-10); EOSINOPHILS % (AUTO) 0 % (0-10); HEMATOCRIT 32 % (35-52); HEMOGLOBIN 10.7 g/dL (11.5-16.0); LYMPHOCYTES # (AUTO) 1.5 10^3/uL (1.0-4.0); LYMPHOCYTES % (AUTO) 22 % (12-44); MEAN CORPUSCULAR HEMOGLOBIN 27 pg (25-34); MEAN CORPUSCULAR HGB CONC 34 g/dL (32-36); MEAN CORPUSCULAR VOLUME 81 fL (80-99); MEAN PLATELET VOLUME 10.7 fL (9.0-12.2); MONOCYTES # (AUTO) 0.4 10^3/uL (0.0-1.0); MONOCYTES % (AUTO) 7 % (0-12); NEUTROPHILS # (AUTO) 4.7 10^3/uL (1.8-7.8); NEUTROPHILS % (AUTO) 70 % (42-75); PLATELET COUNT 196 10^3/uL (130-400); WHITE BLOOD COUNT 6.8 10^3/uL (4.3-11.0)
[2022-04-08] MEDS: D5 LR IV SOLUTION 1,000 ML IV SCH (16:27)
--- NOTE | 2022-04-08 17:13 | History & Physical ---
History and Physical Date Seen by Provider: Apr 08, 2022 Time Seen by Provider: 17:10 This patient is a 21-year-old 1 female who presents with complaint of regular spontaneous contractions all day long. On presentation her cervix was 4 cm. Her has been Uncomplicated. Her GBS culture was negative. She denies rupture membranes or bleeding. Allergies are none Medications are vitamins Medical social and surgical histories are per the antepartum record HEENT exam is normal Neck is supple no lymphadenopathy no thyromegaly Abdomen is gravid soft nontender nondistended Extremities show no clubbing or cyanosis. There is no Homans' sign. Pelvic exam shows a cervix now 5 cm dilated 90% effaced -1 station vertex presentation with intact membranes. Amniotomy was performed with release of clear fluid monitor shows a normal heart rate pattern category 1 with contractions every 4 to 6 minutes or so Laboratory Tests Test 04/08/22 14:55 04/08/22 15:30 Range/Units Urine Color YELLOW Urine Clarity CLEAR Urine pH 7.0 5-9 Urine Specific [place] 1.015 L 1.016-1.022 Urine Protein NEGATIVE NEGATIVE Urine Glucose (UA) NEGATIVE NEGATIVE Urine Ketones NEGATIVE NEGATIVE Urine Nitrite NEGATIVE NEGATIVE Urine Bilirubin NEGATIVE NEGATIVE Urine Urobilinogen 0.2 < = 1.0 MG/DL Urine Leukocyte Esterase NEGATIVE NEGATIVE Urine RBC (Auto) NEGATIVE NEGATIVE Urine RBC NONE /HPF Urine WBC 0-2 /HPF Urine Squamous Epithelial Cells 0-2 /HPF Urine Crystals NONE /LPF Urine Bacteria FEW H /HPF Urine Casts NONE /LPF Urine Mucus SMALL H /LPF Urine Culture Indicated CULTURE PENDING White Blood Count 6.8 4.3-11.0 10^3/uL Red Blood Count 3.94 3.80-5.11 10^6/uL Hemoglobin 10.7 L 11.5-16.0 g/dL Hematocrit 32 L 35-52 % Mean Corpuscular Volume 81 80-99 fL Mean Corpuscular Hemoglobin 27 25-34 pg Mean Corpuscular Hemoglobin Concent 34 32-36 g/dL Red Cell Distribution Width 13.3 10.0-14.5 % Platelet Count 196 130-400 10^3/uL Mean Platelet Volume 10.7 9.0-12.2 fL Immature Granulocyte % (Auto) 1 % Neutrophils (%) (Auto) 70 42-75 % Lymphocytes (%) (Auto) 22 12-44 % Monocytes (%) (Auto) 7 0-12 % Eosinophils (%) (Auto) 0 0-10 % Basophils (%) (Auto) 0 0-10 % Neutrophils # (Auto) 4.7 1.8-7.8 10^3/uL Lymphocytes # (Auto) 1.5 1.0-4.0 10^3/uL Monocytes # (Auto) 0.4 0.0-1.0 10^3/uL Eosinophils # (Auto) 0.0 0.0-0.3 10^3/uL Basophils # (Auto) 0.0 0.0-0.1 10^3/uL Immature Granulocyte # (Auto) 0.1 0.0-0.1 10^3/uL Assessment and plan Term at 38+ weeks gestation in labor. Amniotomy has been performed with release of clear fluid. We anticipate a vaginal delivery. Patient will be allowed an epidural as needed request 38 weeks with spontaneous labor Allergies and Home Medications Allergies Coded Allergies: No Known Drug Allergies (Unverified , 10/23/21) Patient Home Medication List Home Medication List Reviewed: Yes Vit No.124/Iron/FA ( Vitamin Tablet) 27 Mg Iron-800 Mcg Tablet, 1 EACH PO DAILY, (Reported) Entered as Reported by: NANCY BOND on 02/28/222147 Discontinued Medications Methylprednisolone (Medrol Dose pack) 4 Mg Tab, 4 MG PO UD Discontinued Reason: No Longer Taking Prescribed by: NANCY BOND on 02/28/222150 MICHAEL DOMINGUEZ MD Apr 08, 2022 17:13
[2022-04-08] MEDS ORDERED: D5 LR IV SOLUTION 1,000 ML IV SCH (17:15)
[2022-04-08] MEDS ORDERED: OXYTOCIN PRE-MIX DRIP 500 ML IV SCH (18:45)
[2022-04-08] MEDS ORDERED: LACTATED RINGERS 1,000 ML IV ONE ×2 (20:15→22:00)
[2022-04-08] MEDS ORDERED: fentaNYL 2 mcg/ml BUPIVA 0.125 100 ML ONE (20:48)
[2022-04-08] MEDS ORDERED: fentaNYL INJ 100 MCG/2 ML AMP ONE (21:27)
[2022-04-08] MEDS ORDERED: BUPIVACAINE 0.25% 30 ML (SENSORCAINE) VIAL ONE (21:27)
[2022-04-08] MEDS ORDERED: CATHETER FLUSH 10 ML SYR IV PRN (22:00)
[2022-04-08] MEDS ORDERED: fentaNYL 2 mcg/ml BUPIVA 0.125 100 ML IV SCH (22:00)
[2022-04-08] MEDS ORDERED: NALOXONE 0.4 MG/ML 1 ML (NARCAN) VIAL IV PRN (22:00)
[2022-04-08] MEDS: CATHETER FLUSH 10 ML SYR IV SCH (22:00)
[2022-04-09] VITALS (17 sets, daily range): BP systolic 99–138; BP diastolic 54–71
[2022-04-09] MEDS ORDERED: LIDOCAINE 1% INJ 20 ML VIAL ONE (00:01)
[2022-04-09] MEDS: D5 LR IV SOLUTION 1,000 ML IV SCH (00:04)
[2022-04-09] MEDS ORDERED: LIDOCAINE 1% INJ 20 ML VIAL IJ ONE (01:33)
[2022-04-09] MEDS ORDERED: KETOROLAC 30 MG/ML VIAL IV SCH (03:45)
[2022-04-09] MEDS ORDERED: BENZOCAINE/MENTHOL (DERMOPLAST) 56 ML CAN TP PRN (03:45)
[2022-04-09] MEDS ORDERED: TETANUS,DIPTH,PERTUSS P/F (BOOSTRIX) 0.5 ML VIAL IM ONE (03:45)
[2022-04-09] MEDS ORDERED: OXYTOCIN PRE-MIX DRIP 500 ML IV SCH (03:45)
[2022-04-09] MEDS ORDERED: oxyCODONE/APAP 5/325MG (PERCOCET 5) TABLET PO PRN (03:45)
[2022-04-09] MEDS ORDERED: ONDANSETRON 4 MG/2 ML (SDV) Z0FRAN IVP PRN (03:45)
[2022-04-09] MEDS: CATHETER FLUSH 10 ML SYR IV SCH (06:00)
--- NOTE | 2022-04-09 07:33 | Anesthesia-Regional Post-Op ---
Regional Patient Condition Mental Status: Alert, Oriented x3 Circulation: Same as Pre-Op Headache: Absent Sensation: Full Recovery Motor Block: Absent Post Op Complications Complications None Follow Up Care/Instructions Patient Instructions None needed. Anesthesia/Patient Condition Patient is doing well, no complaints, stable vital signs, no apparent adverse anesthesia problems. No complications reported per nursing. [place] [facility] [place]: Yes DILAN TUBBS CRNA Apr 09, 2022 07:32
[2022-04-09] MEDS: DOCUSATE SODIUM 100 MG (COLACE) CAP PO SCH ×2 (08:05→21:03)
--- NOTE | 2022-04-09 08:43 | OPERATIVE REPORT ---
DATE OF SERVICE: 04/09/2022 DELIVERY NOTE DESCRIPTION OF PROCEDURE: The patient delivered by term spontaneous vaginal delivery at 38+ weeks' gestation, a viable female with Apgars of 8 and 9 at 1 and 5 minutes respectively, weight of 7 pounds 11 ounces. time of 0143 and a cord blood pH that is pending. was delivered over a second-degree relatively deep perineal tear. The infant was bulb suctioned on delivery of the head and again on completion of the delivery. Umbilical cord when pulseless was doubly clamped, the father cut the cord. The baby was passed to mom's abdomen. Cervix, vagina, rectum and perineum were examined and found intact except for the deep perineal tear that went down to the sphincter capsule, but no deeper and it did extend approximately 6 cm of the posterior wall of the vagina and the defect was repaired in the usual manner with a single suture of 3-0 Vicryl Rapide and good hemostasis and good reapproximation. Sponge and needle counts were correct on completion of the delivery and the repair. Blood loss was around 300 mL. The patient tolerated the delivery and the repair well and remained in the LDR for recovery. The baby remained with the mom. The repair was effected under analgesia of the epidural and with additional analgesia from 1% lidocaine infiltrated in the perineal body just prior to the delivery. Job ID: [id number] DocumentID: [id number] Dictated Date: 04/09/2022 02:06:24 Waitress Date: 04/09/2022 08:41:00 Dictated By: MICHAEL DOMINGUEZ MD
--- NOTE | 2022-04-09 10:01 | Progress Note ---
Standard Progress Note Progress Notes/Assess & Plan Date Seen by a Provider: Apr 09, 2022 Time Seen by a Provider: 10:00 Progress/Assessment & Plan This patient is without complaint. He is ambulating, voiding, tolerating oral intake well and has good pain control. Patient denies chest pain, denies shortness of breath, denies nausea and vomiting, and denies headache. Vital Signs Date Time Temp Pulse Resp B/P (MAP) Pulse Ox O2 Delivery O2 Flow Rate FiO2 04/09/22 07:14 36.5 86 16 111/61 (78) 100 Room Air 04/09/22 03:21 96 103/58 (73) 04/09/22 03:06 99 99/56 (70) 04/09/22 02:51 90 100/56 (71) 04/09/22 02:36 83 111/61 (78) 04/09/22 02:21 92 113/54 (73) 04/09/22 02:06 114 116/55 (75) 04/09/22 01:51 96 107/55 (72) 04/09/22 01:37 137 122/70 (87) 04/09/22 01:22 89 133/59 (83) 04/09/22 01:08 86 117/63 (81) 04/09/22 00:52 88 112/60 (77) 04/09/22 00:38 89 138/64 (88) 04/09/22 00:03 36.5 04/08/22 23:40 85 99/54 (69) 04/08/22 23:22 104 106/67 (80) 04/08/22 23:07 96 107/69 (82) 04/08/22 22:52 75 102/50 (67) 04/08/22 22:23 95 120/53 (75) 04/08/22 22:03 109 113/59 (77) 99 Room Air 04/08/22 22:00 123 120/59 (79) 98 Room Air 04/08/22 21:56 89 122/71 (88) 97 Room Air 04/08/22 21:53 93 110/60 (77) Room Air 04/08/22 21:50 109 115/61 (79) 97 Room Air 04/08/22 21:47 107 111/61 (78) Room Air 04/08/22 21:44 100 116/61 (79) 98 Room Air 04/08/22 21:41 102 134/64 (87) 04/08/22 21:37 112 134/66 (88) 97 Room Air 04/08/22 21:36 109 133/62 (85) 04/08/22 21:28 97 97 Room Air 04/08/22 21:22 113 22 106/68 (81) Room Air 04/08/22 20:23 76 104/66 (79) Room Air 04/08/22 19:38 36.5 87 108/58 (75) Room Air 04/08/22 19:22 78 110/67 (81) Room Air 04/08/22 19:11 86 93/51 (65) Room Air 04/08/22 19:10 80 99/56 (70) Room Air 04/08/22 17:20 92 20 108/67 (81) Room Air 04/08/22 17:10 86 20 113/72 (86) Room Air 04/08/22 16:52 101 20 119/59 (79) Room Air 04/08/22 16:35 96 20 97/61 (73) Room Air 04/08/22 16:21 99 20 106/58 (74) Room Air 04/08/22 14:53 36.8 116 20 95 Room Air I & O 04/09/22 07:00 Intake Total 1028 ml Balance 1028 ml Vital signs are stable. Patient is afebrile. The abdomen is benign. The fundus is firm below the umbilicus and nontender. Extremities show no clubbing or cyanosis. Homans' sign. Assessment and plan day #1 status post term spontaneous vaginal delivery doing well. Plan is for routine convalescent care Final Diagnosis 38-week spontaneous vaginal delivery MICHAEL DOMINGUEZ MD Apr 09, 2022 10:01
[2022-04-09] MEDS: IBUPROFEN 800 MG (MOTRIN) TAB PO SCH (15:45)
[2022-04-10] MEDS: IBUPROFEN 800 MG (MOTRIN) TAB PO SCH ×2 (00:10→08:20)
[2022-04-10] MEDS ORDERED: IBUPROFEN 800 MG (MOTRIN) TAB PO SCH (03:45)
[2022-04-10 08:17] VITALS: BP 105/59
[2022-04-10] MEDS: DOCUSATE SODIUM 100 MG (COLACE) CAP PO SCH (08:20)
--- NOTE | 2022-04-10 08:50 | Progress Note ---
Standard Progress Note Progress Notes/Assess & Plan Date Seen by a Provider: Apr 10, 2022 Time Seen by a Provider: 08:49 Progress/Assessment & Plan This patient is without complaint. He is ambulating, voiding, tolerating oral intake well and has good pain control. Patient denies chest pain, denies shortness of breath, denies nausea and vomiting, and denies headache. Vital Signs Date Time Temp Pulse Resp B/P (MAP) Pulse Ox O2 Delivery O2 Flow Rate FiO2 04/09/22 07:14 36.5 86 16 111/61 (78) 100 Room Air 04/09/22 03:21 96 103/58 (73) 04/09/22 03:06 99 99/56 (70) 04/09/22 02:51 90 100/56 (71) 04/09/22 02:36 83 111/61 (78) 04/09/22 02:21 92 113/54 (73) 04/09/22 02:06 114 116/55 (75) 04/09/22 01:51 96 107/55 (72) 04/09/22 01:37 137 122/70 (87) 04/09/22 01:22 89 133/59 (83) 04/09/22 01:08 86 117/63 (81) 04/09/22 00:52 88 112/60 (77) 04/09/22 00:38 89 138/64 (88) 04/09/22 00:03 36.5 04/08/22 23:40 85 99/54 (69) 04/08/22 23:22 104 106/67 (80) 04/08/22 23:07 96 107/69 (82) 04/08/22 22:52 75 102/50 (67) 04/08/22 22:23 95 120/53 (75) 04/08/22 22:03 109 113/59 (77) 99 Room Air 04/08/22 22:00 123 120/59 (79) 98 Room Air 04/08/22 21:56 89 122/71 (88) 97 Room Air 04/08/22 21:53 93 110/60 (77) Room Air 04/08/22 21:50 109 115/61 (79) 97 Room Air 04/08/22 21:47 107 111/61 (78) Room Air 04/08/22 21:44 100 116/61 (79) 98 Room Air 04/08/22 21:41 102 134/64 (87) 04/08/22 21:37 112 134/66 (88) 97 Room Air 04/08/22 21:36 109 133/62 (85) 04/08/22 21:28 97 97 Room Air 04/08/22 21:22 113 22 106/68 (81) Room Air 04/08/22 20:23 76 104/66 (79) Room Air 04/08/22 19:38 36.5 87 108/58 (75) Room Air 04/08/22 19:22 78 110/67 (81) Room Air 04/08/22 19:11 86 93/51 (65) Room Air 04/08/22 19:10 80 99/56 (70) Room Air 04/08/22 17:20 92 20 108/67 (81) Room Air 04/08/22 17:10 86 20 113/72 (86) Room Air 04/08/22 16:52 101 20 119/59 (79) Room Air 04/08/22 16:35 96 20 97/61 (73) Room Air 04/08/22 16:21 99 20 106/58 (74) Room Air 04/08/22 14:53 36.8 116 20 95 Room Air I & O 04/09/22 07:00 Intake Total 1028 ml Balance 1028 ml Vital signs are stable. Patient is afebrile. The abdomen is benign. The fundus is firm below the umbilicus and nontender. Extremities show no clubbing or cyanosis. Homans' sign. Assessment and plan day #1 status post term spontaneous vaginal delivery doing well. Plan is for routine convalescent care April 10, 2022 Patient is without complaint. She is ambulating, voiding, tolerating oral intake and has good pain control. Vital Signs Date Time Temp Pulse Resp B/P (MAP) Pulse Ox O2 Delivery O2 Flow Rate FiO2 04/10/22 08:17 35.9 99 18 105/59 (74) 99 Room Air 04/09/22 23:55 36.1 85 18 102/55 (71) 99 Room Air 04/09/22 20:53 36.1 79 16 111/56 (74) 98 Room Air 04/09/22 15:46 36.1 80 18 109/59 (76) 98 Room Air 04/09/22 11:55 36.0 77 18 107/71 (83) 98 Room Air I & O 04/10/22 07:00 Intake Total 1500 ml Balance 1500 ml Vital signs are stable. Patient is afebrile. The abdomen is benign. The fundus is firm below the umbilicus and nontender. Extremities show no clubbing or cyanosis. There is no Homans' sign. Assessment and plan Post day #1. Patient is doing well and can be discharged home today or tomorrow as she prefers Final Diagnosis 38-week spontaneous vaginal delivery MICHAEL DOMINGUEZ MD Apr 10, 2022 08:50
== END 2022-04-10 18:05 | disposition home or self-care (01) | DRG 807 ==
LOC: WSo 14:36 → LDRP 14:36 → WSo 14:59 → LDRP 15:00
PROVIDERS: ADMIT Obstetrics & Gynecology; ATTEND Obstetrics & Gynecology
PROC: 10E0XZZ Delivery of Products of Conception, External Approach (ICD-10-PCS; principal; 2022-04-09)
PROC: 0KQM0ZZ Repair Perineum Muscle, Open Approach (ICD-10-PCS; 2022-04-09)
DX: O70.1 Second degree perineal laceration during delivery (principal); Z37.0 Single live birth; Z3A.38 38 weeks gestation of pregnancy
CPT/HCPCS: 36415; 81000; 85025; 86780; 86850; 86900; 86901; 87088; 99212